=== PATIENT | male | born 2000 | race Caucasian/White ===

== ENCOUNTER 2024-11-29 01:08 | Observation (INO) ==
--- NOTE | 2024-11-29 01:40 | Emergency Department Note ---
Impression & Plan Bilateral mandibular fracture, Fall, Closed head injury, Chin laceration, Alcohol intoxication ED Provider Note CHIEF COMPLAINT: Fall HISTORY OF PRESENTING ILLNESS: This 24-year-old male patient presents to the emergency department with his friend for evaluation of a fall. The patient states that he had 2-3 alcoholic drinks tonight with his last drink at midnight. He denies any drug use. The patient states that he tripped and fell on the sidewalk hitting his chin on the sidewalk. Unsure if he lost consciousness. As soon as his friend picked him up he was responsive, but the patient does not remember the fall. He is having some upper neck pain as well as jaw pain. He has a laceration to the chin as well. He rates his discomfort as 8/10. The patient states that he does not think he has not had a recent tetanus shot and he should have been due for tetanus shot around 23. Denies any chest pain or SOB. Denies any abdominal pain, nausea, or vomiting. Denies any pain in his arms or legs. REVIEW OF SYSTEMS: See HPI for pertinent positives and pertinent negatives. ALLERGIES: NKDA MEDICATIONS: None PAST MEDICAL HISTORY: Denies pertinent past medical or pertinent past surgical history PHYSICAL EXAM: VITALS: Vitals are noted on the nurse's note and reviewed by myself. GENERAL: No acute distress, non-diaphoretic. SKIN: The patient has a 3 cm laceration to the chin. The edges gape apart with traction. No deep structures seen injured within the base of the wound. No foreign bodies noted. No active bleeding. Capillary reflex less than 2 seconds. HEAD: Normocephalic. No scalp tenderness or step-offs felt. EARS: Bilateral external auditory canals clear without tragus tenderness. Bilateral tympanic membranes pearly salazar without erythema or effusion. No mastoid tenderness bilaterally. No hemotympanum. No reese sign. EYES: Pupils equal round and reactive to light and accommodation. Conjunctivae without injection, sclerae without icterus. Extraocular movements intact. No nystagmus. NOSE: Patent without discharge. No sinus tenderness. No septal hematoma or bleeding. FACE: The patient is significantly tender to palpation over the bilateral TMJs as well as over the mandible in all areas. The patient is unable to open his mouth fully. Significant increased pain with trying to open his mouth and with certain positions of his mouth. No fracture crepitus noted. MOUTH: The patient has a broken right lower molar, but the chipped piece is still held in place within the gingiva. No other obvious loose or chipped teeth. No lacerations to the inside of the mouth noted. Mucous membranes moist. Pharynx without erythema or exudate. Uvula midline. Airway patent. Tongue does not deviate. NECK: Supple without nuchal rigidity. Cervical spine is nontender. The patient does have some mild left-sided paraspinal muscle tenderness mostly near the angle of the mandible. HEART: Regular rate and rhythm without murmurs gallops or rubs. LUNGS: Clear to auscultation bilaterally without wheezes, rales or rhonchi. No retractions or accessory muscle use. CHEST: No chest wall tenderness. ABDOMEN: Positive bowel sounds x 4. Normal tympanic percussion. Soft, nontender, without masses or organomegaly. No guarding or rebound tenderness. MUSCULOSKELETAL: No tenderness of the thoracic or lumbar spine. No tenderness with pelvic rocking. Full range of motion without tenderness to palpation in all extremities. Normal gait. Strength 5/5 throughout. Peripheral pulses 2+. NEURO: Patient was alert and oriented to person place and time. Normal mental status exam. Normal sensation to light and sharp touch. Cerebellar function intact. No focal neurological deficits. DIFFERENTIAL DIAGNOSIS: Differential diagnosis includes concussion, contusion, fracture, subluxation, dislocation, subdural hematoma, epidural hematoma, intraparenchymal hemorrhage, contusion, ligamentous injury, neurovascular, compartment syndrome, rhabdomyolysis, intra-abdominal injury, splenic rupture, hepatic rupture, rib fractures, cardiac contusion, pneumothorax, hemothorax, cardiac tamponade, intrathoracic injury, neurologic, as well as other pathologies. ED COURSE AND MEDICAL DECISION MAKING: HISTORY FROM INDEPENDENT HISTORIAN: Additional history was obtained from the patient's friend who witnessed the fall. MEDICATIONS GIVEN: Tylenol 1000 mg IV. 1 L normal saline solution bolus. Ancef 2 g IV. Tetanus booster. MONITOR: Continuous manager cardiac cath: Order was placed for continuous manager cardiac cath. Patient was placed on the manager cardiac cath and continuous pulse ox. Patient was noted to be in normal sinus rhythm at an initial rate of 90 bpm per my interpretation. EKG: EKG was interpreted by myself as normal sinus rhythm at 94 bpm with no acute ST or T wave changes. INTERPRETATION OF LABS: I interpreted the labs with full lab results as below in the lab section of this note. Laboratory results pertinent to the emergent complaint are discussed in the MDM section below. The patient was advised to follow up with their PCP and/or specialist(s) for further outpatient monitoring and management of any abnormal results. INTERPRETATION OF IMAGING: Imaging studies were interpreted by myself and read by radiology as per the imaging section of this note. The patient was advised to follow up with their PCP and/or specialist(s) for further outpatient management of any non-emergent abnormal findings. CT scan of the head without contrast was negative for acute intracranial abnormality. CT scan of the cervical spine without contrast was negative for acute fracture or subluxation. The fractures of the bilateral mandibular condyles were seen. CT scan of the face without contrast showed displaced fractures of the bilateral condylar process of the mandible. Chest x-ray negative for acute cardiopulmonary etiology. CONSULTATIONS: Dr. Wharton of maxillofacial surgery. On-call hospitalist. PROCEDURES: Risks and benefits of the procedure were discussed. Verbal consent was obtained to perform the procedure and the procedure was performed by myself. Let gel was applied for anesthesia of the wound. Using sterile technique the wound was cleaned with Betadine. The area was sterilely draped. An additional 1 ml of 1% lidocaine was used to further anesthetize the wound. Once the patient was anesthetized, the wound was copiously irrigated under pressure with sterile saline. The wound was explored and was as described above. The laceration was repaired using 7 simple interrupted 6-0 nylon sutures with the wound edges being well approximated. The patient tolerated the procedure well. Hemostasis was achieved. The area was cleaned with sterile saline and dressed with bacitracin ointment. MDM SUMMARY: The patient was made an injury alert due to his fall and intoxication. I examined the patient. Primary and secondary surveys/exams were performed. The patient was placed in a stiff cervical collar due to his neck pain and mild tenderness over the left sided paraspinal muscles. An IV lock was placed and labs were drawn. The patient was medicated with Tylenol 1000 mg IV and 1 L normal saline solution bolus. CBC without leukocytosis, anemia, or thrombocytopenia. Coags were normal. CMP normal. Medical alcohol level 22.5. CT scan of the head without contrast was negative for acute intracranial abnormality. CT scan of the cervical spine without contrast was negative for acute fracture or subluxation. The fractures of the bilateral mandibular condyles were seen. CT scan of the face without contrast showed displaced fractures of the bilateral condylar process of the mandible. Once the fractures were noted on CT scan, the patient was made a trauma alert by nursing staff. Chest x-ray negative for acute cardiopulmonary etiology. EKG without acute abnormalities. Repeat exam once the patient was no longer intoxicated reveal no additional tenderness to palpation or evidence for trauma requiring imaging. I repeated a cervical spine exam and the patient no longer had any cervical spine or paraspinal muscle tenderness. The stiff cervical collar was removed by myself. The patient had full range of motion of his neck without pain. I suspect his neck pain was coming from the condylar fractures. The patient's chin laceration was repaired as above. After discussion with the patient, he does not think he had a recent tetanus shot and would like to have a tetanus shot in the ER. He was given a tetanus booster. I spoke with Dr. Wharton of maxillofacial surgery in regards to the bilateral mandibular condyle fractures. He recommended the patient be given Ancef 2 g IV and admitted by medicine for likely surgical repair later today. The patient remained NPO. I spoke with the on-call hospitalist who agreed to admit the patient for further management. Please refer to their dictation for further details. The patient's care was transferred in stable condition. DIAGNOSIS: Bilateral mandibular condyle fractures Close head injury with ? LOC Alcohol intoxication Chin laceration Fall Past Med/Surg History Problem List (Updated 11/29/24 @ 20:20 by Lindsay Pimentel PA-C) Alcohol intoxication (Acute) Chin laceration (Acute) Closed head injury (Acute) Fall (Acute) Closed jaw fracture Anxiety Fall Bilateral mandibular fracture (Acute) COVID-19 (Acute) Social History Smoking Status: Never smoker Tobacco Type: Declines Hx Alcohol Use: Yes Alcohol type: beer Hx Substance Use: Yes Last Used Substance: Days (ago) Last Used Substance Other:: 2 months ago Preferred Language: Com[place]an Communication Ability: Effective Siding Installer Required: No Beliefs That Will Affect Care: None Current Living Situation Comment: Pt living with roomates Feels Safe at Home: Yes Safety Concerns: Feels Safe At This Time Allergies Allergies Allergy/AdvReac Type Severity Reaction Status Date / Time No Known Allergies Allergy Verified 11/29/24 05:40 Home Meds Previous Rx's Medication Instructions Recorded amoxicillin 600 mg-potassium 7.3 ml PO Q12H 7 days #102.2 mL 11/29/24 clavulanate 42.9 mg/5 mL oral suspension hydrocodone 7.5 mg-acetaminophen 15 ml PO Q4H PRN pain #250 mL 11/29/24 325 mg/15 mL oral solution Results & Data (ED) Vital Signs Vital Signs - 24 hr 11/29/24 01:16 11/29/24 01:45 11/29/24 03:28 Temperature 36.8 C Temperature Source Pulse Rate 94 H 89 106 H Pulse Rate [Apical] Pulse Rhythm [Apical] Pulse Strength [Apical] Pulse Strength [Right Carotid] Normal Respiratory Rate 18 20 Respiratory Effort / Characteristics Non-Labored Spontaneous Respiratory Depth Normal Respiratory Pattern Regular Blood Pressure 159/79 H 129/85 Blood Pressure [Right Arm] Blood Pressure Mean 105 Blood Pressure Mean [Right Arm] Blood Pressure Position [Right Arm] Pulse Oximetry 98 98 Oxygen Delivery Method Room Air Room Air Oxygen Flow Rate 0 Sepsis Recent Fever Within 48 Hours No Sepsis New/Unexplained Change in Mental Status No Sepsis Action Taken by Nursing No Action Required 11/29/24 03:28 11/29/24 03:28 11/29/24 04:28 Temperature 36.8 C Temperature Source Oral Pulse Rate Pulse Rate [Apical] 98 H 94 H Pulse Rhythm [Apical] Regular Regular Pulse Strength [Apical] Normal Normal Pulse Strength [Right Carotid] Respiratory Rate 20 18 Respiratory Effort / Characteristics Non-Labored Spontaneous Non-Labored Spontaneous Respiratory Depth Normal Normal Respiratory Pattern Regular Regular Blood Pressure Blood Pressure [Right Arm] 129/85 124/81 Blood Pressure Mean Blood Pressure Mean [Right Arm] 99 95 Blood Pressure Position [Right Arm] Lying Lying Pulse Oximetry 98 99 Oxygen Delivery Method Room Air Room Air Room Air Oxygen Flow Rate 98 Sepsis Recent Fever Within 48 Hours Sepsis New/Unexplained Change in Mental Status Sepsis Action Taken by Nursing 11/29/24 05:00 Temperature Temperature Source Pulse Rate Pulse Rate [Apical] 93 H Pulse Rhythm [Apical] Regular Pulse Strength [Apical] Normal Pulse Strength [Right Carotid] Respiratory Rate 18 Respiratory Effort / Characteristics Non-Labored Spontaneous Respiratory Depth Normal Respiratory Pattern Regular Blood Pressure Blood Pressure [Right Arm] 149/72 H Blood Pressure Mean Blood Pressure Mean [Right Arm] 97 Blood Pressure Position [Right Arm] Lying Pulse Oximetry 98 Oxygen Delivery Method Room Air Oxygen Flow Rate Sepsis Recent Fever Within 48 Hours Sepsis New/Unexplained Change in Mental Status Sepsis Action Taken by Nursing Laboratory Data 11/29/24 02:05 11/29/24 02:05 Lab Results 11/29/24 Range/Units 02:05 WBC 7.22 (4.8-10.8) K/ul RBC 5.34 (4.70-6.10) M/uL Hgb 16.8 (14.0-18.0) g/dl Hct 46.4 (42.0-52.0) % MCV 86.9 (80.0-100.0) fL MCH 31.5 (25.0-34.0) pg MCHC 36.2 H (32.0-36.0) g/dL RDW Std Deviation 40.0 (36.4-46.3) fL RDW Coeff of Bib 12.6 (11.5-14.5) % Plt Count 218 (130-400) K/uL MPV 9.4 (9.4-12.4) fL Immature Gran % (Auto) 0.1 % Neut % (Auto) 38.7 % Lymph % (Auto) 49.6 % Dodge % (Auto) 10.8 % Eos % (Auto) 0.1 % Baso % (Auto) 0.7 % Neut # (Auto) 2.79 (1.40-6.50) K/uL Lymph # (Auto) 3.58 H (1.20-3.40) K/uL Dodge # (Auto) 0.78 H (0.11-0.59) K/uL Eos # (Auto) 0.01 (0.00-0.50) K/uL Baso # (Auto) 0.05 (0.00-0.20) K/uL Immature Gran # (Auto) 0.01 (0.01-0.20) K/uL PT 10.9 (9.0-12.0) Seconds INR 1.0 (0.9-1.1) APTT 25 (21-31) Seconds PTT Ratio 0.9 Sodium 139 (136-145) mmol/L Potassium 3.6 (3.5-5.1) mmol/L Chloride 104 (98-107) mmol/L Carbon Dioxide 26 (21-32) mmol/L Anion Gap 9 (3-11) BUN 11 (6-23) mg/dl Creatinine 0.94 (0.6-1.4) mg/dl Est Cr Clr Drug Dosing Not Reportable eGFR 117.54 BUN/Creatinine Ratio 11.7 (10-20) Glucose 89 (70-99(Fasting)) mg/dl Calcium 9.4 (8.6-10.3) mg/dl Total Bilirubin 0.8 (0.2-1.0) mg/dl AST 33 (13-39) U/L ALT 23 (7-52) U/L Alkaline Phosphatase 71 (34-104) U/L Total Protein 7.1 (6.0-8.3) gm/dl Albumin 4.8 (3.4-5.0) gm/dl Globulin 2.3 L (2.5-4.0) gm/dl Albumin/Globulin Ratio 2.1 H (0.9-2) Ethyl Alcohol mg/dL 22.5 H (<10.0) mg/dl Administered Medications Cefazolin Sodium (Ancef 2000mg) 2,000 mg in 15 mls @ 3.75 mls/min IV Q8H [facility] Stop: 12/09/24 12:59 Last Admin: 11/29/24 12:40 Dose: 3.75 mls/min Documented By: ARSH Lactated Ringer's (Lr) 1,000 mls @ 80 mls/hr IV .[id number] [facility] Stop: 11/30/24 18:59 Last Admin: 11/29/24 19:26 Dose: 80 mls/hr Documented By: SUNNI Ketorolac Tromethamine (Ketorolac 30 Mg/Ml Vial) 30 mg IV Q6H [facility] Stop: 12/04/24 17:44 Last Admin: 11/29/24 18:39 Dose: 30 mg Documented By: KD Discontinued Medications Bupivacaine HCl (Bupivacaine/Epinephrine 0.5% 1:200,000 1.8 Ml Carp) Confirm Administered Dose 14.4 ml .ROUTE .STK-MED ONE Stop: 11/29/24 15:15 Last Admin: 11/29/24 16:37 Dose: 9 ml Documented By: KENIA Chlorhexidine Gluconate (Chlorhexidine Gluconate 0.12% 480 Ml) Confirm Administered Dose 480 ml MT .STK-MED ONE Stop: 11/29/24 15:15 Last Admin: 11/29/24 16:37 Dose: 480 ml Documented By: KENIA Diphtheria/Pertussis/Tetanus Vacc (Diphther/Tetan/Pertus Vaccine (Tdap, Adol/Adult) 0.5ml) 0.5 ml IM .ONCE ONE Stop: 11/29/24 04:59 Last Admin: 11/29/24 05:06 Dose: 0.5 ml Documented By: MATEUSZ Fentanyl Citrate (Fentanyl Citrate Pf 100 Mcg/2 Ml Vial) 25 mcg IV Q5M PRN PRN Reason: PACU Use Only-Pain Stop: 11/29/24 22:39 Last Admin: 11/29/24 17:34 Dose: 25 mcg Documented By: Admin: 11/29/24 17:29 Dose: 25 mcg Documented By: Admin: 11/29/24 17:24 Dose: 25 mcg Documented By: Admin: 11/29/24 17:19 Dose: 25 mcg Documented By: HEIDI Hydromorphone HCl (Hydromorphone Inj 0.5 Mg/0.5 Ml Syr) Confirm Administered Dose 0.5 mg .ROUTE .STK-MED ONE Stop: 11/29/24 18:07 Last Admin: 11/29/24 18:44 Dose: Not Given Documented By: LULU Hydromorphone HCl (Hydromorphone Inj 0.5 Mg/0.5 Ml Syr) 0.25 mg IV NOW STA Stop: 11/29/24 18:18 Last Admin: 11/29/24 18:44 Dose: Not Given Documented By: LULU Acetaminophen (Ofirmev) 1,000 mg in 100 mls @ 400 mls/hr IV NOW STA Stop: 11/29/24 02:03 Last Infusion: 11/29/24 02:18 Dose: Infused Documented By: Admin: 11/29/24 02:03 Dose: 400 mls/hr Documented By: MATEUSZ Cefazolin Sodium (Ancef 2000mg) 2,000 mg in 15 mls @ 3.75 mls/min IV NOW STA Stop: 11/29/24 04:58 Last Admin: 11/29/24 05:01 Dose: 3.75 mls/min Documented By: MATEUSZ Sodium Chloride (Nss) 1,000 mls @ 999 mls/hr IV .[id number] ONE Stop: 11/29/24 06:15 Last Infusion: 11/29/24 06:17 Dose: Infused Documented By: Admin: 11/29/24 05:16 Dose: 999 mls/hr Documented By: MATEUSZ Sodium Chloride (Nss) 1,000 mls @ 80 mls/hr IV .[id number] GERRY Stop: 11/29/24 18:14 Last Infusion: 11/29/24 17:55 Dose: Infused Documented By: Admin: 11/29/24 06:27 Dose: 80 mls/hr Documented By: MATEUSZ Ketorolac Tromethamine (Ketorolac Tromethamine 15 Mg/Ml Vial) 10 mg IV NOW ONE Stop: 11/29/24 05:33 Last Admin: 11/29/24 06:17 Dose: 10 mg Documented By: MATEUSZ Ketorolac Tromethamine (Ketorolac Tromethamine 15 Mg/Ml Vial) 15 mg IV Q6H PRN PRN Reason: Pain Stop: 12/04/24 11:34 Last Admin: 11/29/24 12:47 Dose: 15 mg Documented By: ARSH Lidocaine (Lidocaine/Epineph/Tetracaine 1 Ea Syr) 1 each EXT NOW ONE Stop: 11/29/24 01:50 Last Admin: 11/29/24 02:03 Dose: 1 each Documented By: MATEUSZ Triamcinolone Acetonide (Triamcinolone Acet 0.1% Oint 15 Gm Tube) Confirm Administered Dose 45 appln .ROUTE .STK-MED ONE Stop: 11/29/24 15:14 Last Admin: 11/29/24 16:37 Dose: 2 appln Documented By: BRS Discharge Plan Visit Data Chief Complaint: Trauma Stated Complaint: ETOH,FALL,MOUTH BLEEDING ED Provider: Angelica Alonzo ED Midlevel Provider: Lindsay Pimentel Discharge Problem: Bilateral mandibular fracture, Fall, Closed head injury, Chin laceration, Alcohol intoxication Patient Disposition: Admitted As Inpatient Condition: Good Discharge Instructions Interventions: ED Discharge Assessment Last Done: 11/29/24 07:29 Discharge Problem: Bilateral mandibular fracture Qualifiers: Encounter type: initial encounter Fracture type: closed Qualified Code(s): S 02.609A - Fracture of mandible, unspecified, initial encounter for closed fracture Fall Qualifiers: Encounter type: initial encounter Qualified Code(s): W19.XXXA - Unspecified fall, initial encounter Closed head injury Qualifiers: Encounter type: initial encounter Qualified Code(s): S09.90XA - Unspecified injury of head, initial encounter Chin laceration Qualifiers: Encounter type: initial encounter Qualified Code(s): S01.81XA - Laceration without foreign body of other part of head, initial encounter Alcohol intoxication Qualifiers: Complication of substance-induced condition: uncomplicated Qualified Code(s): F 10.920 - Alcohol use, unspecified with intoxication, uncomplicated
[2024-11-29] MEDS: LIDOCAINE/EPINEPH/TETRACAINE 1 EA SYR EXT ONE (02:03)
[2024-11-29] MEDS: ACETAMINOPHEN 1,000 MG/100 ML VIAL IV STA (02:03)
[2024-11-29 02:30] LABS: Basophils # (auto) 0.05 K/uL (0.00-0.20); Basophils % (auto) 0.7 %; Eosinophils # (auto) 0.01 K/uL (0.00-0.50); Eosinophils % (auto) 0.1 %; Hematocrit (blood only) 46.4 % (42.0-52.0); Hemoglobin 16.8 g/dl (14.0-18.0); Immature Granulocytes # (auto) 0.01 K/uL (0.01-0.20); Immature Granulocytes % (auto) 0.1 %; Lymphocytes # (auto) 3.58 K/uL (1.20-3.40); Lymphocytes % (auto) 49.6 %; Mean Corpuscular Hemoglobin 31.5 pg (25.0-34.0); Mean Corpuscular Hgb Conc 36.2 g/dL (32.0-36.0); Mean Corpuscular Volume 86.9 fL (80.0-100.0); Mean Platelet Volume 9.4 fL (9.4-12.4); Monocytes # (auto) 0.78 K/uL (0.11-0.59); Monocytes % (auto) 10.8 %; Neutrophils # (auto) 2.79 K/uL (1.40-6.50); Neutrophils % (auto) 38.7 %; Platelet Count 218 K/uL (130-400); RDW Coefficient of Variation 12.6 % (11.5-14.5); Red Blood Count 5.34 M/uL (4.70-6.10); White Blood Count 7.22 K/ul (4.8-10.8)
[2024-11-29 02:46] LABS: Alanine Aminotransferase 23 U/L (7-52); Albumin Globulin Ratio 2.1 (0.9-2); Albumin Level 4.8 gm/dl (3.4-5.0); Alkaline Phosphatase 71 U/L (34-104); Anion Gap 9 (3-11); Aspartate Aminotransferase 33 U/L (13-39); BUN Creatinine Ratio 11.7 (10-20); Bilirubin,Total 0.8 mg/dl (0.2-1.0); Blood Urea Nitrogen 11 mg/dl (6-23); Calcium 9.4 mg/dl (8.6-10.3); Carbon Dioxide 26 mmol/L (21-32); Chloride 104 mmol/L (98-107); Globulin 2.3 gm/dl (2.5-4.0); Glucose 89 mg/dl (70-99(Fasting)); Potassium 3.6 mmol/L (3.5-5.1); Sodium 139 mmol/L (136-145); Total Protein 7.1 gm/dl (6.0-8.3)
--- NOTE | 2024-11-29 02:56 | CT Scan Report ---
EXAM: CT head/brain wo con CLINICAL HISTORY: Trauma TECHNIQUE: Multiple axial images are obtained from the skull base to the vertex without contrast. CT scan was performed according to ALARA (as low as reasonable achievable). COMPARISON: None. FINDINGS: The brain shows normal morphology, attenuation, and volume for age. No evidence of space occupying lesion, hemorrhage, edema, mass effect, midline shift, extra axial collection, or hydrocephalus is noted. Ventricles, sulci, and basal cisterns are symmetric and normal in size and configuration. The salazar-white matter differentiation is preserved. Visualized paranasal sinuses and mastoid air cells are well aerated. Orbital contents are within normal limits. Bony structures are intact. IMPRESSION: 1. No evidence of acute intracranial abnormality is demonstrated Electronically signed by Spenser Helms 11-29-2024 02:56 AM
[2024-11-29 03:00] LABS: Partial Thromboplastin Ratio 0.9; Partial Thromboplastin Time 25 Seconds (21-31); Prothrombin Time 10.9 Seconds (9.0-12.0)
--- NOTE | 2024-11-29 03:10 | CT Scan Report ---
EXAM: CT cervical spine wo con CLINICAL HISTORY: Trauma TECHNIQUE: Computed tomography of the cervical spine performed without intravenous contrast. Contiguous axial images were obtained from the skull base to T2, with sagittal and coronal reformatted images reconstructed from the axial data. CT scan was performed according to ALARA (as low as reasonable achievable). COMPARISON: None. FINDINGS: The normal cervical lordotic curvature is lost due to spasm. Cervical vertebral bodies are normal in height and alignment, with no evidence of fracture or subluxation. Lateral masses of C1 are symmetrical, and the dens is intact. Prevertebral soft tissues are not widened. The remaining suprahyoid and infrahyoid soft tissues in the neck are unremarkable. C2-C3: No disc bulge, mass effect on the cord or neuroforaminal narrowing. C3-C4: No disc bulge, mass effect on the cord or neuroforaminal narrowing. C4-C5: No disc bulge, mass effect on the cord or neuroforaminal narrowing. C5-C6: No disc bulge, mass effect on the cord or neuroforaminal narrowing. C6-C7: No disc bulge, mass effect on the cord or neuroforaminal narrowing. C7-T1: No disc bulge, mass effect on the cord or neuroforaminal narrowing. Thyroid gland appears unremarkable. Fracture of bilateral mandibular condyles seen. IMPRESSION: 1.No acute fracture or subluxation in the cervical spine. 2. Fracture of bilateral mandibular condyles seen. Electronically signed by Spenser Helms 11-29-2024 03:10 AM
--- NOTE | 2024-11-29 03:55 | CT Scan Report ---
EXAM: CT facial bones wo con CLINICAL HISTORY: Trauma TECHNIQUE: Computed tomography of the orbits/face was performed without intravenous contrast. Contiguous axial images were obtained. Reformatted coronal and sagittal images were also reviewed. CT scan was performed according to ALARA (as low as reasonable achievable). COMPARISON: none. FINDINGS: Displaced fractures of bilateral condylar process of mandible. No acute facial fractures. The paranasal sinuses and mastoid air cells are clear. The globes, optic nerves, extraocular muscles and retro-orbital fat are grossly unremarkable. Reformatted imaging demonstrates intact roof and floor of the orbits. The included intracranial substances and airway are unremarkable. IMPRESSION: 1. Displaced fractures of bilateral condylar process of mandible. Electronically signed by Spenser Helms 11-29-2024 03:55 AM
--- NOTE | 2024-11-29 04:23 | XRay Report ---
EXAM: XR chest 1V portable CLINICAL HISTORY: Trauma TECHNIQUE: An X-ray image of the chest is obtained in AP projection. COMPARISON: No prior studies are available for comparison. FINDINGS: Pulmonary Parenchyma: Lungs are clear bilaterally. No evidence of consolidation, collapse, or focal opacities. No pulmonary nodules are identified. No evidence of pleural effusion or pleural thickening. Heart and Mediastinum: Heart size and shape are normal. No mediastinal widening or masses. No hilar or mediastinal lymphadenopathy. Bony Thorax: Bony thorax appears intact without fractures or deformities. Soft Tissues: Soft tissues overlying the chest wall are unremarkable. No displaced rib fractures IMPRESSION: No evidence of pneumothorax or displaced rib fractures. Electronically signed by Andie Sarabia 11-29-2024 04:22 AM
[2024-11-29] MEDS: ceFAZolin 2000MG 2,000 MG/15 ML SYR IV STA (05:01)
[2024-11-29] MEDS: DIPHTHER/TETAN/PERTUS Vaccine (Tdap, Adol/Adult) 0.5mL IM ONE (05:06)
[2024-11-29] MEDS: SODIUM CHLORIDE 0.9% 1,000 ML IV ONE (05:16)
--- NOTE | 2024-11-29 05:20 | History & Physical Report ---
Date of Service November 29, 2024 Assessment & Plan (1) Bilateral mandibular fracture: (2) Fall: (3) Anxiety: Plan Patient is a 24-year-old male with no significant past medical history. He presented to the ED after a fall in which he hit his chin on the sidewalk resulting in bilateral mandibular condyle displaced fractures. He is being admitted with the hospitalist as the primary team to undergo surgery today by division leader. #fall/mandible fractures S/p fall hitting chin on the sidewalk after 2-3 alcohol beverages, + LOC CXR, head CT, and cervical spine CT negative Face CT showed displaced fractures of bilateral condylar process of mandible EtOH level 22.5 renal function stable, CBC WNL, no anemia 1L NSS bolus in ED; continue gentle fluid resuscitation with 1L NSS at 80 mL/hour continue Ancef 2G IV every 8 hours Pain control with IV Tylenol 1G IV every 8 hours, IV Toradol 10 Mg IV Qevery 6 hours Received tetanus vaccine in ED N.p.o. Maxillofacial surgery consulted, Dr. Winslow for OR procedure today 11/29 EKG ordered with LOC after fall #Anxiety Patient reports anxiety with hospitalization and upcoming procedure Ativan 0.25 Mg IV every 8 hours VTE ppx: SCDs, defer chemical PPx as able to ambulate and surgical procedure Diet: n.p.o. Dispo: MedSurg Admission and Anticipated Discharge Date Admission Date: 11/29/24 History of Present Illness Chief Complaint: Trauma Primary Care Provider: Kizzy Sevilla DO Patient is a 24-year-old male with no significant past medical history. He presented to the ED after a fall in which he hit his chin on the sidewalk resulting in bilateral mandibular condyle displaced fractures. He is being admitted with the hospitalist as the primary team to undergo surgery today by division leader. Patient seen at bedside. he stated he was out with his friend and had 2-3 drinks, tripped on the sidewalk, fell and hit his chin on the sidewalk. He does endorse loss of consciousness and stated he felt ringing in his ears prior to losing consciousness for several seconds. He denies any head ache, dizziness, lightheadedness, tinnitus, vision changes on exam. His friend picked him up and he was responsive immediately. He denies any shortness of breath or chest pain. He stated his pain is still currently an 8/10 after receiving IV Tylenol, IV Toradol ordered. He does endorse vaping use however declines need for nicotine patch. He drinks alcohol socially, no daily use. He denies any recent illicit drug use. He is a [employer] student from [place], he is going to let his family know that he is having a procedure today once they wake up. 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 He does not take any medications every day. He wishes to be full code. Allergies Allergy/AdvReac Type Severity Reaction Status Date / Time No Known Allergies Allergy Verified 11/29/24 05:40 Home Medications Medication Instructions Recorded Confirmed Type amoxicillin 600 mg-potassium 7.3 ml PO Q12H 7 days #102.2 mL 11/29/24 Rx clavulanate 42.9 mg/5 mL oral suspension hydrocodone 7.5 mg-acetaminophen 15 ml PO Q4H PRN pain #250 mL 11/29/24 Rx 325 mg/15 mL oral solution Past Med/Surg History Problem List (Updated 11/29/24 @ 17:29 by Abel Wharton DMD) Closed jaw fracture Anxiety Fall Bilateral mandibular fracture COVID-19 (Acute) Social History Smoking Status: Never smoker Tobacco Type: Declines Hx Alcohol Use: Yes Alcohol type: beer Hx Substance Use: Yes Last Used Substance: Days (ago) Last Used Substance Other:: 2 months ago Preferred Language: Hungarian Communication Ability: Effective Histology Aide Required: No Beliefs That Will Affect Care: None Current Living Situation Comment: Pt living with roomates Feels Safe at Home: Yes Safety Concerns: Feels Safe At This Time Review of Systems Review of Systems: See HPI Physical Exam Physical Exam: The patient is awake, alert and oriented 3, well developed and well nourished, in no acute distress. Non-toxic appearing. HEENT- EOMI, mucous membranes moist. Hearing grossly intact. sutures to chin, mandibular swelling, dried blood. Heart-normal S1 and S2. No murmurs, rubs or gallops. Lungs-clear bilaterally, no respiratory distress, no accessory muscle use. Abdomen-normal bowel sounds and soft. No ascites noted. Non-tender. Extremities- no clubbing, cyanosis, or edema. Rheumatologic-normal range of motion. Psychiatric- Anxious affect. Results & Data Results & Data Vital Signs (Past 12 Hours) Vital Signs Temp Pulse Pulse Resp BP BP Pulse Ox 11/29/24 04:28 94 H 18 124/81 99 11/29/24 03:28 11/29/24 03:28 36.8 C 98 H 20 129/85 98 11/29/24 03:28 36.8 C 106 H 20 129/85 98 11/29/24 01:45 89 11/29/24 01:16 94 H 18 159/79 H 98 O2 Del Method O2 Flow Rate 11/29/24 04:28 Room Air 11/29/24 03:28 Room Air 98 11/29/24 03:28 Room Air 11/29/24 03:28 Room Air 0 11/29/24 01:45 11/29/24 01:16 Room Air Laboratory Results reviewed CBC and CMP, EtOH level Diagnostic Findings reviewed CXR, head CT, face CT, cervical spine CT Medications Administered EDAncef 2G IV, tetanus shot, Tylenol 1G IV, 1L NSS bolus AdmissionIV Toradol 10 Mg IV, NSS at 80 mL/hour ECG Additional Comments: ordered Code Status & VTE Plan Code Status full code VTE Prophylaxis Plan VTE Prophylaxis will be ordered: Yes Supervising Physician Co-Signing Physician Notes Attending addendum: I have physically seen this patient, have supervised the SANDY's activities, and agree with the H&P unless as otherwise noted. Assessment and Plan: The patient is a 24-year-old male with no significant past medical history, who reportedly had a fall while walking on the sidewalk, hitting his chin, and imaging in the emergency department shows bilateral mandibular condyle displaced fractures. [facility] to undergo evaluation by oral maxillofacial surgery Dr. Wharton for possible surgical intervention. #Mechanical fall/bilateral mandibular condyle displaced fractures- N.p.o. Precipitating factor likely alcoholic beverage intake Chest x-ray negative CT head and CT cervical spine negative CT face shows fractures as noted Ancef 2 g IV every 8 hours Pain control with acetaminophen 1 g IV every 8 hours as needed for mild pain or fever Toradol 10 mg IV every 6 hours as needed for moderate pain Consult O[facility] Dr. Wharton Anxiety- Ativan 0.25 mg every 8 hours as needed Remaining orders and notations as noted PG Care Time/CCT Total # of Minutes Spent Total Time Spent with Patient: Total time spent is greater than 50% in coordination of care (as documented) at patient's floor/unit and/or counseling patient: Coding Level of Care Code 61921 INT INP/OBS CARE MIN Diagnoses Bilateral mandibular fracture S02.609A Fall W19.XXXA Anxiety F41.9
[2024-11-29] MEDS: KETOROLAC TROMETHAMINE 15 MG/ML VIAL IV ONE (06:17)
[2024-11-29] MEDS: SODIUM CHLORIDE 0.9% 1,000 ML IV SCH (06:27)
[2024-11-29] MEDS ORDERED: ACETAMINOPHEN 1,000 MG/100 ML VIAL IV PRN (07:30)
[2024-11-29] MEDS ORDERED: ONDANSETRON INJ 2 MG/ML 2 ML VIAL IV PRN ×3 (07:30→17:42)
--- NOTE | 2024-11-29 08:24 | Oral/Maxillofacial Consult ---
Date of Consultation November 29, 2024 Assessment & Plan (1) Anxiety: (2) Fall: (3) Bilateral mandibular fracture: (4) Closed jaw fracture: History of Present Illness Reason for Consultation: jaw fracture Attending Physician: Luis Barker MD History of Present Illness This 24-year-old male patient presents to the emergency department with his friend for evaluation of a fall. The patient states that he had 2-3 alcoholic drinks tonight with his last drink at midnight. The patient states that he tripped and fell on the sidewalk hitting his chin on the sidewalk. Unsure if he lost consciousness. As soon as his friend picked him up he was responsive, but the patient does not remember the fall. He is having some upper neck pain as well as jaw pain. He has a laceration to the chin as well. He rates his discomfort as 8/10. The patient thinks that his tetanus shot is up to date, but will check with his PCP. Denies any chest pain or SOB. Denies any abdominal pain, nausea, or vomiting. Denies any pain in his arms or legs. I reviewed Redd`s CT scan he has bilateral condyle fractures with medial displacement. I will see him this afternoon and develop a treatment plan which will include a closed reduction with the placement of KLS Medardo Hybrid arch bars for jaw fixation for about 2-3 weeks followed by elastic therapy (functional therapy for an addition 3-4 weeks to insure physiologic healing of the bilateral fractures. Jaw/Head/Neck exam: Neck is supple, FROM, Able to extend and flex neck w/o difficulty, no masses, no abnormalities, no airway issues, no evidence of sleep apnea. Jaw is in an abnormal position with slight open bite due to bilateral condyle fractures. Pain on movement , not able to maintain his normal bite. closed reduction is needed for the bilateral fractures Treatment Plan: The goal of the the closed reduction is to allow readaptation of the fractured condyles while maintaining ideal dental occlusion to allow a physiologic readaptation of the muscles,ligaments and bilateral TMJ function. I finalized the treatment plan and set him up for the procedure today or tomorrow. I also reviewed the planned treatment with his mother (phone) and grandparents (present) Plan closed reduction with KLS Medardo Hybrid arch bar, 3 weeks fixation then at least 3 weeks elastics Fractured # 30 will remove loose facial fragment and exam in the OR I reviewed the CT scan with Redd. Discussed all the risks. Set up with general anesthesia in hospital due to complexity of the procedure I reviewed the treatment plan and consent with the patient and mother (phone) Understanding was expressed. Time was given for questions regarding the surgery, risks and post op care. Discussed alternative to treatment--procedure as planned, Do not do surgery Risks discussed: Bleeding,Pain,swelling,infection Jaws wires , use of elastics, diet, oral care, delayed healing, nerve injury to face,lips,tongue,chin area which could be permanent (rare). TMJ, jaw stiffness, change in bite (rare), ear pain (referred). TMJ problems in future, jaw function, change in jaw opening-noise, pain, crepitus, need for further surgery on TMJ replacement Facial plate fracture # 30,Palatal cusp facture # 12 Retained primary lower molars Home care reviewed: tooth brushing, rinsing, follow up care with Dr Wharton. diet=clear-full then advance to soft dental. discussed activity level, driving/work while on Rx pain Meds. ALLERGIES: NKDA MEDICATIONS: None PAST MEDICAL HISTORY: Denies pertinent past medical or pertinent past surgical history Patient seen at bedside. he stated he was out with his friend and had 2-3 drinks, tripped on the sidewalk, fell and hit his chin on the sidewalk. He does endorse loss of consciousness and stated he felt ringing in his ears prior to losing consciousness for several seconds. He denies any head ache, dizziness, lightheadedness, tinnitus, vision changes on exam. His friend picked him up and he was responsive immediately. He denies any shortness of breath or chest pain. He stated his pain is still currently an 8/10 after receiving IV Tylenol, IV Toradol ordered. He does endorse vaping use however declines need for nicotine patch. He drinks alcohol socially, no daily use. He denies any recent illicit drug use. He is a [employer] student from [place], he is going to let his family know that he is having a procedure today once they wake up. 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 He does not take any medications every day. He wishes to be full code. Past Med/Surg History Problem List Anxiety Fall Bilateral mandibular fracture COVID-19 (Acute) Social History Smoking Status: Current every day smoker Preferred Language: Omani Feels Safe at Home: Yes Physical Exam Physical Exam: Jaw is in an abnormal position with slight open bite due to bilateral condyle fractures. Pain on movement , not able to maintain his normal bite. closed reduction is needed for the bilateral fractures The patient is awake, alert and oriented 3, well developed and well nourished, in no acute distress. Non-toxic appearing. HEENT- EOMI, mucous membranes moist. Hearing grossly intact. sutures to chin, mandibular swelling, dried blood. Heart-normal S1 and S2. No murmurs, rubs or gallops. Lungs-clear bilaterally, no respiratory distress, no accessory muscle use. Abdomen-normal bowel sounds and soft. No ascites noted. Non-tender. Extremities- no clubbing, cyanosis, or edema. Rheumatologic-normal range of motion. Psychiatric- Anxious affect. CT facial bones wo con CLINICAL HISTORY: Trauma FINDINGS: Displaced fractures of bilateral condylar process of mandible. No acute facial fractures. The paranasal sinuses and mastoid air cells are clear. The globes, optic nerves, extraocular muscles and retro-orbital fat are grossly unremarkable. Reformatted imaging demonstrates intact roof and floor of the orbits. The included intracranial substances and airway are unremarkable. IMPRESSION: 1. Displaced fractures of bilateral condylar process of mandible. Allergies Allergy/AdvReac Type Severity Reaction Status Date / Time No Known Allergies Allergy Verified 11/29/24 05:40 Home Medications Medication Instructions Recorded Confirmed Type No Known Home Medications 11/29/24 11/29/24 History Patient History Social History Smoking Status: Never smoker Tobacco Type: Declines Hx Alcohol Use: Yes Alcohol type: beer Hx Substance Use: Yes Last Used Substance: Days (ago) Last Used Substance Other:: 2 months ago Preferred Language: Omani Communication Ability: Effective Sprinkling System Irrigator Required: No Beliefs That Will Affect Care: None Current Living Situation Comment: Pt living with roomates Feels Safe at Home: Yes Safety Concerns: Feels Safe At This Time Results & Data Vital Signs (Past 12 Hours) Vital Signs Temp Pulse Pulse Resp BP BP Pulse Ox 11/29/24 08:00 100 H 16 125/84 97 11/29/24 06:00 90 18 125/71 97 11/29/24 05:55 95 H 11/29/24 05:00 93 H 18 149/72 H 98 11/29/24 04:28 94 H 18 124/81 99 11/29/24 03:28 11/29/24 03:28 36.8 C 98 H 20 129/85 98 11/29/24 03:28 36.8 C 106 H 20 129/85 98 11/29/24 01:45 89 11/29/24 01:16 94 H 18 159/79 H 98 O2 Del Method O2 Flow Rate 11/29/24 08:00 Room Air 11/29/24 06:00 Room Air 11/29/24 05:55 11/29/24 05:00 Room Air 11/29/24 04:28 Room Air 11/29/24 03:28 Room Air 98 11/29/24 03:28 Room Air 11/29/24 03:28 Room Air 0 11/29/24 01:45 11/29/24 01:16 Room Air PG Care Time/CCT Total # of Minutes Spent Total Time Spent with Patient: Total time spent is greater than 50% in coordination of care (as documented) at patient's floor/unit and/or counseling patient: Coding Level of Care Code 90355 OFFICE CONSULT LVL 30M History Expanded Problem Focused Exam Expanded Problem Focused Medical Decision Making Moderate Complexity Diagnoses Anxiety F41.9 Fall, initial encounter W19.XXXA Encounter type: initial encounter Bilateral closed fracture of mandible, initial encounter S02.609A Encounter type: initial encounter Fracture type: closed Closed fracture of jaw, initial encounter S02.609A Encounter type: initial encounter CPT Codes CL TX MANDIBULAR FX W INTERDENTAL FIXATION - 28521 ([id number]) (2) Fall Encounter type: initial encounter Qualified Code(s): W19.XXXA - Unspecified fall, initial encounter (3) Bilateral mandibular fracture Encounter type: initial encounter Fracture type: closed Qualified Code(s): S02.609A - Fracture of mandible, unspecified, initial encounter for closed fracture (4) Closed jaw fracture Encounter type: initial encounter Qualified Code(s): S02.609A - Fracture of mandible, unspecified, initial encounter for closed fracture
[2024-11-29] MEDS: ceFAZolin 2000MG 2,000 MG/15 ML SYR IV SCH (12:40)
[2024-11-29] MEDS: KETOROLAC TROMETHAMINE 15 MG/ML VIAL IV PRN (12:47)
[2024-11-29] MEDS ORDERED: DEXAMETHASONE SOD INJ 4 MG/ML VIAL ONE (14:08)
[2024-11-29] MEDS ORDERED: PROPOFOL IV EMULSION 10 MG/ML 20 ML VIAL IV ONE (14:08)
[2024-11-29] MEDS ORDERED: MIDAZOLAM HCL 1 MG/ML 2ML VIAL ONE (14:08)
[2024-11-29] MEDS ORDERED: fentaNYL citrate PF 100 MCG/2 ML VIAL ONE (14:08)
[2024-11-29] MEDS ORDERED: LIDOCAINE 2% 2 ML VIAL/AMP(20MG/ML) INFIL ONE (14:08)
[2024-11-29] MEDS ORDERED: ROCURONIUM BROMIDE 10 MG/ML 5 ML VIAL IV ONE (14:08)
[2024-11-29] MEDS ORDERED: ONDANSETRON INJ 2 MG/ML 2 ML VIAL ONE (14:08)
--- NOTE | 2024-11-29 14:30 | Anesthesiology Consultation ---
Date of Service November 29, 2024 Assessment & Plan Chart Review Chart Review: Acceptable Risk for Surgery and Patient NOT seen in Pre Admission Testing Consults Requested none ASA [id number] Proposed Anesthesia Anesthesia Type: General Risk / Benefits Reviewed With: PT / POA / Parent / Guardian, Accepts Plan and Informed Consent Obtained History Surgery Operation Date: 11/29/24 12:25 Proposed Procedures p Closed Reduction Mandibular Fracture - Abel Morillo Akiko, DMD Height/Weight Height: 5 ft 10 in Weight: 72.4 kg Allergies Allergy/AdvReac Type Severity Reaction Status Date / Time No Known Allergies Allergy Verified 11/29/24 05:40 Medications Home Medications Medication Instructions Recorded Confirmed Last Taken No Known Home Medications 11/29/24 11/29/24 Unknown Active Medications Generic Name Dose Route Start Last Admin Trade Name Freq PRN Reason Stop Dose Admin Sodium Chloride 1,000 mls @ 80 mls/hr 11/29/24 05:45 11/29/24 06:27 Nss IV 11/29/24 18:14 80 mls/hr .[id number] GERRY Administration Cefazolin Sodium 2,000 mg in 15 mls @ 3.75 mls/min 11/29/24 13:00 11/29/24 12:40 Ancef 2000mg IV 12/09/24 12:59 3.75 mls/min Q8H GERRY Administration Ketorolac Tromethamine 15 mg 11/29/24 11:35 11/29/24 12:47 Ketorolac Tromethamine 15 Mg/Ml Vial IV 12/04/24 11:34 15 mg Q6H PRN Administration Pain NPO Date Last Intake of Fluids: 11/29/24 Time Last Intake of Fluids: 01:00 Date Last Intake of Solids: 11/28/24 Time Last Intake of Solids: 17:00 Past Medical History Asthma Vapes/smokes Exercise / Class Metabolic Activity 1 > 8 Run/Swim/Ski/Tennis Past Anesthesia History No Hx of Anesthesia Complications and No Family Hx of Anesthesia Complications History of PONV No Hx of PONV and No Hx of Motion Sickness Social History Smoking Status: Never smoker Hx Alcohol Use: Yes Alcohol type: beer alcohol intake frequency: holidays/special occasions only Hx Substance Use: Yes substance use type: marijuana Last Used Substance: Days (ago) Last Used Substance Other:: 2 months ago Physical Exam Vital Signs Last Vital Signs Temp 37.4 C 11/29/24 14:23 Pulse 106 H 11/29/24 14:23 Resp 20 11/29/24 14:23 BP 158/107 H 11/29/24 14:23 Pulse Ox 96 11/29/24 14:23 O2 Del Method Room Air 11/29/24 14:23 O2 Flow Rate 98 11/29/24 03:28 Constitutional no acute distress and not cachectic ENMT Mouth: + dentition abnormality, + chipped teeth and + loose teeth Thyromental Distance: > or= 3.5 Finger Breadths Mallampati Class: Other (difficult to determine 2ndary to fractured mandible;unable to open widely) Neck normal visual inspection and trachea midline; neck extension not limited Respiratory normal respiratory effort Auscultation: lungs clear to auscultation bilaterally Cardiovascular Rate/Rhythm: regular rate and regular rhythm Heart Sounds: no murmur Vessels: no carotid bruit Musculoskeletal Spine: normal cervical ROM and no pain with cervical ROM Extremities: extremities normal to inspection; full ROM of extremities Neurologic moves all extremities Motor/Sensory: no sensory deficit Psychiatric Orientation: alert and oriented x 3 Testing Laboratory Results 11/29/24 02:05 11/29/24 02:05 PT 10.9 Seconds (9.0-12.0) 11/29/24 02:05 INR 1.0 (0.9-1.1) 11/29/24 02:05 APTT 25 Seconds (21-31) 11/29/24 02:05 Electrocardiogram Date: 11/29/24 Findings: + NSR @ (@ 94) Chest X-Ray Date: 11/29/24 Findings: + NAD
[2024-11-29] MEDS ORDERED: FLUMAZENIL 0.1 MG/1 ML 10 ML VIAL IV PRN (14:39)
[2024-11-29] MEDS ORDERED: NALOXONE HCL 0.4 MG/1 ML VIAL/CARP IV PRN (14:39)
[2024-11-29] MEDS ORDERED: ePHEDrine sulfate 50 MG/ML AMP IV PRN (14:39)
[2024-11-29] MEDS ORDERED: HYDROmorphone INJ 1 MG/ML SYRINGE IV PRN (14:39)
[2024-11-29] MEDS ORDERED: PROMETHAZINE HCL 6.25 MG in SODIUM CHLORIDE 0.9% 50 ML IV PRN (14:39)
[2024-11-29] MEDS ORDERED: ATROPINE SULFATE 0.1 MG/ML 10ML SYR IV PRN (14:39)
[2024-11-29] MEDS ORDERED: OXYMETAZOLINE 0.05% 30 ML BTL ONE (15:06)
[2024-11-29] MEDS ORDERED: LIDOCAINE 2% JELLY 5 ML TUBE EXT ONE (15:32)
[2024-11-29] MEDS ORDERED: KETAMINE HCL 10MG/ML SYR ONE (15:47)
[2024-11-29] MEDS ORDERED: HYDROmorphone INJ 1 MG/ML SYRINGE ONE (16:09)
[2024-11-29] MEDS ORDERED: SUGAMMADEX SODIUM 200 MG/2 ML VIAL IV ONE (16:23)
[2024-11-29] MEDS ORDERED: DROPERIDOL 5 MG/2 ML VIAL ONE (16:31)
[2024-11-29] MEDS: TRIAMCINOLONE ACET 0.1% OINT 15 GM TUBE ONE (16:37)
[2024-11-29] MEDS: CHLORHEXIDINE GLUCONATE 0.12% 480 ML MT ONE (16:37)
[2024-11-29] MEDS: BUPIVACAINE/EPINEPHRINE 0.5% 1:200,000 1.8 ML CARP ONE (16:37)
[2024-11-29] MEDS: fentaNYL citrate PF 100 MCG/2 ML VIAL IV PRN (17:19)
--- NOTE | 2024-11-29 17:39 | Post Operative Brief Note ---
PG Immediate Post Op with CF Date of Surgery November 29, 2024 Pre & Post Diagnosis Operation Date: 11/29/24 12:25 Pre-Op Diagnosis: bilateral condyle fractures with medial displacement Post-Op Diagnosis: bilateral condyle fractures with medial displacement I identified the patient and participated in the time-out.: Yes Procedure Operation Date: 11/29/24 12:25 Actual Procedures p Closed Reduction Mandibular Fracture(Not Applicable) - Abel Wharton DMD Surgeon Abel Wharton, EDMOND [employer] none Estimated Blood Loss 2 Findings Consistent with Post-Op Diagnosis bilateral condyle fracture with displacement open bite deviation in occlusion Pain on jaw movement Specimens Specimen Description: No specimen per surgeon Anesthesia Type General Disposition Accompanied Patient To Recovery: Yes
[2024-11-29] MEDS ORDERED: SODIUM CHLORIDE 0.65% NA SOLN 45 ML (OCEAN) PRN (17:42)
[2024-11-29] MEDS ORDERED: OXYMETAZOLINE 0.05% 30 ML BTL PRN (17:42)
[2024-11-29] MEDS ORDERED: MoRPHine SULFATE 2 MG/ML CARP IV PRN (17:42)
[2024-11-29] MEDS ORDERED: HYDROcodone/APAP 7.5/325mg/15mL ELIX 15 ML/CUP PO PRN (17:42)
[2024-11-29] MEDS ORDERED: ACETAMINOPHEN SUSP 160 MG/5 ML UDC PO PRN (17:45)
--- NOTE | 2024-11-29 17:52 | Anesthesiology Progress Note ---
Date of Service November 29, 2024 Anesthesia Post Procedure Vital Signs Vital Signs: Temp Pulse Pulse Resp BP BP BP 11/29/24 17:45 36.6 C 85 16 152/89 H 11/29/24 17:35 98 H 16 164/99 H 11/29/24 17:25 86 16 156/92 H 11/29/24 17:15 87 19 159/96 H 11/29/24 17:05 36.8 C 88 19 157/86 H 11/29/24 14:23 37.4 C 106 H 20 158/107 H 11/29/24 14:04 98 H 20 124/81 11/29/24 09:53 108 H 17 134/75 11/29/24 08:00 100 H 16 125/84 11/29/24 06:00 90 18 125/71 11/29/24 05:55 95 H 11/29/24 05:00 93 H 18 149/72 H 11/29/24 04:28 94 H 18 124/81 11/29/24 03:28 11/29/24 03:28 36.8 C 98 H 20 129/85 11/29/24 03:28 36.8 C 106 H 20 129/85 11/29/24 01:45 89 11/29/24 01:16 94 H 18 159/79 H Pulse Ox O2 Del Method O2 Flow Rate 11/29/24 17:45 97 Room Air 6 11/29/24 17:35 98 Oxymask 6 11/29/24 17:25 98 Oxymask 6 11/29/24 17:15 98 Oxymask 6 11/29/24 17:05 98 Oxymask 6 11/29/24 14:23 96 Room Air 11/29/24 14:04 98 Room Air 11/29/24 09:53 97 Room Air 11/29/24 08:00 97 Room Air 11/29/24 06:00 97 Room Air 11/29/24 05:55 11/29/24 05:00 98 Room Air 11/29/24 04:28 99 Room Air 11/29/24 03:28 Room Air 98 11/29/24 03:28 98 Room Air 11/29/24 03:28 98 Room Air 0 11/29/24 01:45 11/29/24 01:16 98 Room Air Pain Intensity Face: Pain Intensity: 4 Transfer of Care Handoff Completed per policy Notes Mental Status: alert / awake / arousable Patient Amnestic to Procedure: Yes Nausea / Vomiting: adequately controlled Pain: adequately controlled Airway Patency, RR, SpO2: stable & adequate BP & HR: stable & adequate Hydration State: stable & adequate Anesthetic Complications: no major complications apparent
[2024-11-29] MEDS: KETOROLAC 30 MG/ML VIAL IV SCH (18:39)
[2024-11-29] MEDS: HYDROmorphone INJ 0.5 MG/0.5 ML SYR IV STA (18:44)
[2024-11-29] MEDS: HYDROmorphone INJ 0.5 MG/0.5 ML SYR ONE (18:44)
--- NOTE | 2024-11-29 18:48 | XRay Report ---
EXAM: Radiographs of the Mandible Limited 2 Views INDICATION: Postop TECHNIQUE: Frontal and/or lateral views of the mandible. COMPARISON: No relevant prior studies available. FINDINGS: Dental: No acute change noted. Bones/joints: The mandible is wired closed. There are screws in the mandible and maxilla. Hardware well-seated and intact. No fracture noted. Soft tissues: No abnormality noted. No radiopaque foreign body noted. IMPRESSION: The mandible is wired closed. There are screws in the mandible and maxilla. Hardware well-seated and intact. ACT 112: N/A Electronically signed by Em Sawyer 11-29-2024 6:48 PM
--- NOTE | 2024-11-29 18:52 | History & Physical Bridge Note ---
Date of Service November 29, 2024 History & Physical Bridge Note I have examined the patient, reviewed the History & Physical and in the interval since the performance of the History & Physical I have noted the following changes of clinical significance: Pt seen after had surgical repair. Having pain but received pain meds. Can have clear liquids with a straw. Discussed with Dr. Wharton Will start IVFs for maintenance and discontinued toradol 15mg dose as he is getting scheduled toradol 30mg and IV decadron Will add IV protonix while on high doses of steroids and NSAIDs
[2024-11-29] MEDS: LACTATED RINGER'S 1,000 ML IV SCH (19:26)
[2024-11-29] MEDS: PANTOprazole 40 MG/10 ML SYR IV SCH (20:04)
[2024-11-29] MEDS: dexAMETHasone 6 MG in SYRINGE 0 ML IV SCH (20:50)
[2024-11-29] MEDS: TRIAMCINOLONE ACET 0.1% OINT 15 GM TUBE EXT SCH (20:50)
--- NOTE | 2024-11-29 21:02 | Electrocardiogram Report ---
Test Reason : Blood Pressure : */* mmHG Vent. Rate : 94 BPM Atrial Rate : 94 BPM P-R Int : 132 ms QRS Dur : 90 ms QT Int : 336 ms P-R-T Axes : 75 67 34 degrees QTcB Int : 420 ms Normal sinus rhythm Nonspecific T wave abnormality No previous ECGs available Confirmed by Tyron Can ([id number]) on 11/29/2024 9:01:48 PM Referred By: REFERRED SELF Confirmed By: Tyron Can
[2024-11-29] MEDS: LORazepam 2 MG/1 ML VIAL IV PRN (21:54)
[2024-11-30 06:57] LABS: Hematocrit (blood only) 45.5 % (42.0-52.0); Hemoglobin 16.3 g/dl (14.0-18.0); Mean Corpuscular Hemoglobin 31.1 pg (25.0-34.0); Mean Corpuscular Hgb Conc 35.8 g/dL (32.0-36.0); Mean Corpuscular Volume 86.8 fL (80.0-100.0); Mean Platelet Volume 9.6 fL (9.4-12.4); Platelet Count 229 K/uL (130-400); RDW Coefficient of Variation 12.2 % (11.5-14.5); RDW Standard Deviation 39.3 fL (36.4-46.3); Red Blood Count 5.24 M/uL (4.70-6.10); White Blood Count 10.63 K/ul (4.8-10.8)
[2024-11-30 07:07] LABS: Albumin Globulin Ratio 1.7 (0.9-2); Albumin Level 4.3 gm/dl (3.4-5.0); BUN Creatinine Ratio 13.6 (10-20); Bilirubin,Total 0.6 mg/dl (0.2-1.0); Calcium 9.1 mg/dl (8.6-10.3); Creatinine Clr Calc Pharmacy 134.8 ml/min; Globulin 2.5 gm/dl (2.5-4.0); Potassium 3.9 mmol/L (3.5-5.1); Total Protein 6.8 gm/dl (6.0-8.3)
[2024-11-30 07:24] LABS: Basophils # (auto) 0.03 K/uL (0.00-0.20); Basophils % (auto) 0.3 %; Eosinophils # (auto) 0.01 K/uL (0.00-0.50); Eosinophils % (auto) 0.1 %; Immature Granulocytes # (auto) 0.03 K/uL (0.01-0.20); Immature Granulocytes % (auto) 0.3 %; Lymphocytes # (auto) 2.65 K/uL (1.20-3.40); Lymphocytes % (auto) 24.9 %; Monocytes # (auto) 0.18 K/uL (0.11-0.59); Monocytes % (auto) 1.7 %; Neutrophils # (auto) 7.73 K/uL (1.40-6.50); Neutrophils % (auto) 72.7 %
--- NOTE | 2024-11-30 08:32 | Hospitalist Progress Note ---
Date of Service November 30, 2024 Assessment & Plan (1) Bilateral mandibular fracture: (2) Fall: (3) Anxiety: Plan Patient is a 24-year-old male with no significant past medical history. He presented to the ED after a fall in which he hit his chin on the sidewalk resulting in bilateral mandibular condyle displaced fractures. He is being admitted with the hospitalist as the primary team to undergo surgery today by behavioral health consultant. #fall/mandible fractures S/p fall hitting chin on the sidewalk after 2-3 alcohol beverages, + LOC CXR, head CT, and cervical spine CT negative Face CT showed displaced fractures of bilateral condylar process of mandible EtOH level 22.5 renal function stable, CBC WNL, no anemia 1L NSS bolus in ED; continue gentle fluid resuscitation with 1L NSS at 80 mL/hour continue Ancef 2G IV every 8 hours Pain control with IV Tylenol 1G IV every 8 hours, IV Toradol 10 Mg IV Qevery 6 hours Received tetanus vaccine in ED Maxillofacial surgery consulted, Dr. Whartonplanning for OR procedure today 11/29 EKG ordered with LOC after fall #Anxiety Patient reports anxiety with hospitalization and upcoming procedure Ativan 0.25 Mg IV every 8 hours Maxillofacial surgery, Dr Wharton did review and discharge Admission and Anticipated Discharge Date Admission Date: November 29, 2024 Subjective pt was seen with family, reviewed pain medicines and diet Physical Exam Physical Exam: good pain control jaw "wired" shut no respiratory distress Results & Data Results & Data Vital Signs (Past 12 Hours) Vital Signs Temp Pulse Resp BP BP Pulse Ox O2 Del Method 11/30/24 07:26 97.9 F 85 18 125/77 96 Room Air 11/30/24 03:32 97.7 F 98 H 16 102/53 L 96 Room Air 11/29/24 21:55 98.2 F 104 H 16 131/67 96 Room Air 11/29/24 20:38 98.8 F 99 H 16 143/72 H 94 Room Air PG Care Time/CCT Total # of Minutes Spent Total Time Spent with Patient: Total time spent is greater than 50% in coordination of care (as documented) at patient's floor/unit and/or counseling patient: Coding Level of Care Code 13516 SUB INP/OBS CARE 2/35MIN Diagnoses Bilateral closed fracture of mandible, initial encounter S02.609A Encounter type: initial encounter Fracture type: closed Fall, initial encounter W19.XXXA Encounter type: initial encounter Anxiety F41.9 (1) Bilateral mandibular fracture Encounter type: initial encounter Fracture type: closed Qualified Code(s): S02.609A - Fracture of mandible, unspecified, initial encounter for closed fracture (2) Fall Encounter type: initial encounter Qualified Code(s): W19.XXXA - Unspecified fall, initial encounter
--- NOTE | 2024-11-30 10:04 | Oral/Maxillofacial Progress Nt ---
Date of Service November 30, 2024 Assessment & Plan Admission and Anticipated Discharge Date Admission Date: November 29, 2024 Subjective Closed reduction bilateral condyle fracture reduction surgery post op note at 24 hours Excellent result, Reviewed post op X-Rays excellent alignment of the teeth Tissue tone, gingival tissue--excellent Occlusion very stable with the wires His pain is well controlled No nasal congestion or bleeding, septum well positioned. No sinus issues Facial alignment excellent OK for discharge today--Rx Liquid pain mes and antibiotics Reviewed post op care--diet, oral care, use of interior block wirer, activities. Next appointment set up for:MondayDECEMBER 02 at 2:15 Overall excellent result from recent OG surgery Results & Data Vital Signs (Past 12 Hours) Vital Signs Temp Pulse Resp BP BP Pulse Ox O2 Del Method 11/30/24 07:26 36.6 C 85 18 125/77 96 Room Air 11/30/24 03:32 36.5 C 98 H 16 102/53 L 96 Room Air PG Care Time/CCT Total # of Minutes Spent Total Time Spent with Patient: Total time spent is greater than 50% in coordination of care (as documented) at patient's floor/unit and/or counseling patient: Coding Level of Care Code None
--- NOTE | 2024-11-30 10:14 | Discharge Summary ---
Date of Service November 30, 2024 Closed reduction bilateral condyle fracture reduction surgery post op note at 24 hours Doing very well, discussed home care with Father who is present ok for d/c today Excellent result, Reviewed post op X-Rays excellent alignment of the teeth Tissue tone, gingival tissue--excellent Occlusion very stable with the wires His pain is well controlled No nasal congestion or bleeding, septum well positioned. No sinus issues Facial alignment excellent OK for discharge today--Rx Liquid pain mes and antibiotics Reviewed post op care--diet, oral care, use of link wire fabric machine operator, activities. Next appointment set up for:MondayDECEMBER 02 at 2:15 Overall excellent result from recent OG surgery Admission HPI Per Admitting Provider Patient is a 24-year-old male with no significant past medical history. He presented to the ED after a fall in which he hit his chin on the sidewalk resulting in bilateral mandibular condyle displaced fractures. He is being admitted with the hospitalist as the primary team to undergo surgery today by behavioral health therapist. Patient seen at bedside. he stated he was out with his friend and had 2-3 drinks, tripped on the sidewalk, fell and hit his chin on the sidewalk. He does endorse loss of consciousness and stated he felt ringing in his ears prior to losing consciousness for several seconds. He denies any head ache, dizziness, lightheadedness, tinnitus, vision changes on exam. His friend picked him up and he was responsive immediately. He denies any shortness of breath or chest pain. He stated his pain is still currently an 8/10 after receiving IV Tylenol, IV Toradol ordered. He does endorse vaping use however declines need for nicotine patch. He drinks alcohol socially, no daily use. He denies any recent illicit drug use. He is a [employer] student from [place], he is going to let his family know that he is having a procedure today once they wake up. 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 He does not take any medications every day. He wishes to be full code. Discharge Data Consultations 11/29/24 05:18 ED Decision to Admit Stat 11/29/24 05:37 Consult Oromaxillofacial Surgery Routine Procedures Performed Operation Date: 11/29/24 12:25 Actual Procedures p Closed Reduction Mandibular Fracture(Not Applicable) - Abel R Wharton, DMD Coding Level of Care Code 96536 IN/OBS DISCH 30 MIN/LESS
--- NOTE | 2024-12-08 11:30 | Operative Report ---
[facility] Post Operative Report Pre & Post Diagnosis Operation Date: 11/29/24 12:25 Pre-Op Diagnosis: bilateral condyle fractures with medial displacement Post-Op Diagnosis: bilateral condyle fractures with medial displacement I identified the patient and participated in the time-out.: Yes Procedure Operation Date: 11/29/24 12:25 Actual Procedures p Closed Reduction Mandibular Fracture(Not Applicable) - Abel Wharton, DMD Surgeon Abel Wharton, DMD Stitcher Special Machine none Estimated Blood Loss 2 Findings Consistent with Post-Op Diagnosis Specimens none Drains none Anesthesia Type General Complications none Disposition Accompanied Patient To Recovery: Yes Indications bilateral condyle fractures with medial displacement Description of Procedure ADMITTING DIAGNOSES: Displaced mandibular bilateral Condyle fractures CPT 23456-Uqzgeu treatment of mandibular fracture with interdental fixation ([employer] Medardo Hybrid archbars) ICD 10 S02.611A Condyle fracture right ICD 10 S02.612A Condyle fracture left OPERATION: Closed reduction of bilateral mandibular condyle fractures with placement of Hybrid arch bars (K[employer] Medardo) and jaw fixation. OPERATION IN DETAIL: After this patient was cleared to undergo general, The patient was placed under general anesthesia via a nasotracheal intubation. After an appropriate time-out was taken to ensure that we had Redd Lea in our operating room with the proper equipment. After everyone agreed, the operation began. The patient was deeply anesthetized and the tubes were secured. The patient was prepped and draped in the usual manner. Given the nature of the fracture, a closed functional approach will be used. Hybrid Arch bars will be placed on the upper/lower teeth with wire fixation for 3 weeks the transition to dental elastics. Placement of KLS Medardo Hybrid Arch Bars Upper/Lower teeth: Local anesthesia in the form of Marcaine with a vasoconstrictor, approximately 4 carpules of the local anesthesia were injected. The fractured was reduced and the occlusion was checked. The arch bars were placed on the lower and upper teeth with the standard hybrid arch bar protocol using 6 and 8 mm KLS Medardo screws. The roots were avoided. It was noted that there was no movement in the anterior fracture where the symphyseal fracture was noted. Given the minimal I removed the throat packs, irrigated the oral cavity and suctioned it dry and passed an OG tube. I now turned my attention to setting the occlusion. I was able to carefully place the mandible into proper inter-dental relationship with the maxilla. I placed the patient into a fixated position with 25 g wire. I was able to obtain an ideal occlusion of the teeth. The final occlusion was achieved and the 24-25 g wires was placed to maintain the fixation I placed the patient into a fixated Recovery Phase: At this time the sponge and instruments count was correct. The patient was allowed to recover in the usual manner and then once fully recovered moved to the recovery room, Post op plans: My plan is to keep the patient in a fixated position for 3 weeks then transition to a modified exercise program with dental elastics and soft diet for the next 3-4 weeks. We will keep the arch bars in place for a total of 7-8 weeks, then return him to the operating room for removal of the maxillary/mandibular fixation devices. Outcome: Transported in stable condition to post anesthesia recovery area. The patient tolerated the surgical procedure and anesthesia extremely well and I anticipate an uneventful postoperative course. I will follow the patient in my office, Rx and instructions will be given upon discharge. CPT 14689-Akiszl treatment of mandibular fracture with interdental fixation ([employer] archbars) ICD 10 S02.611A Condyle fracture right ICD 10 S02.612A Condyle fracture left I attest to the content of the Intraoperative Record and any orders documented therein. Any exceptions are noted below.
== END 2024-11-30 12:58 | disposition home or self-care (01) ==
LOC: SUATTDRO → ED 01:08 → EDINP 01:08 → SUATTDRO 05:37 → EDINP 07:29 → 3N 18:33